=== PATIENT | male | born 1960 | race African-American/Black ===

== ENCOUNTER 2016-09-25 13:38 | Emergency (ER) | payer BC ==
[~2016-09-25 13:38] MED LIST: ASAB PO; BRILINTA90 MG PO; COREG12 PO; COREG6 PO; FLOVENT110 INH; HYGROTON 25 MG25 MG OR; KLOR-CON 1010 MEQ PO; LIPITOR40 PO; LISINOPRIL40 MG PO; MICARDIS HCT PO; MICARDIS80 PO; MICROZIDE PO; NAP500 PO; NEXIUM40 PO; NITROSTAT0.4 MG SL; NORV10 PO; NYS500UDL PO; PEPCID40 MG OR; PLAVIX PO; PRILO PO; PRILOSEC40 MG PO; PRIN10 PO; PROVHFA INH; REG PO; VENTOLIN HFA INH; Z100 PO; ZOCOR40 PO
[2016-09-25 16:29] LABS: BASOPHILS 0.3 %; BASOPHILS ABSOLUTE 0.03 10/3/uL (0.0-0.16); EOSINOPHILS 1.7 %; EOSINOPHILS ABSOLUTE 0.16 10/3/uL (0.0-0.53); ER CBC TAT 0 Hrs 03 Mins; HEMOGLOBIN 12.4 g/dL (13.6-17.8); IMMATURE GRANULOCYTES 0.4 %; IMMATURE GRANULOCYTES ABSOLUTE 0.04 10/3/uL (0.0-0.11); LYMPHOCYTES ABSOLUTE 3.17 10/3/uL (0.67-4.30); MEAN CORPUS HGB CONC 35.3 g/dL (32.0-36.0); MEAN CORPUSCULAR HEMOGLOB 31.4 pg (26.0-34.0); MEAN CORPUSCULAR VOLUME 88.9 fL (80-100); MEAN PLATELET VOLUME 10.8 fL (9.2-13.0); MONOCYTES 12.4 %; MONOCYTES ABSOLUTE 1.15 10/3/uL (0.21-1.20); NEUTROPHILS 51.2 %; NEUTROPHILS ABSOLUTE 4.76 10/3/uL (2.02-8.40); RBC DISTRIBUTION WIDTH 14.3 % (12.0-16.0); RED CELL COUNT 3.95 10/6/uL (4.7-6.1); WHITE BLOOD CELLS 9.3 10/3/uL (4.5-10.5)
[2016-09-25 16:30] LABS: HEMATOCRIT 35.1 % (40.0-51.0); MANUAL DIFF NO %; PLATELET COUNT 365 10/3/uL (150-400)
[2016-09-25 16:44] LABS: CHLORIDE, SERUM 106 MMOL/L (96-112); CO2 (CARBON DIOXIDE) 25 MMOL/L (24-34); SGOT(AST) 15 U/L (5-40); SGPT(ALT) 26 U/L (5-65); SODIUM, SERUM 139 MMOL/L (135-148); TOTAL BILIRUBIN 0.5 MG/DL (0-1.2); TOTAL PROTEIN 8.8 G/DL (6.0-8.5)
[2016-09-25 16:46] LABS: A/G RATIO 0.6 (0.7-1.9); ALBUMIN 3.2 G/DL (3.5-5.0); ALKALINE PHOSPHATASE 65 U/L (45-117); BUN (BLOOD UREA NITROGEN) 9 MG/DL (6-23); CREATININE 0.92 MG/DL (0.70-1.30); GFR AFRICAN AMERICAN 107 ML/MIN (>=60); GFR NON AFRICAN AMERICAN 93 ML/MIN (>=60); GLOBULIN 5.6 G/DL (2.5-4.1); GLUCOSE, SERUM 97 MG/DL (60-99)
[2017-03-01] MEDS ORDERED: PLAVIX PO (11:22)
== END 2016-09-25 17:30 | disposition home or self-care (01) ==
LOC: ER 13:38
PROVIDERS: Nurse Practitioner Acute Care
DX: J06.9 Acute upper respiratory infection, unspecified (principal); I10 Essential (primary) hypertension; J45.909 Unspecified asthma, uncomplicated; Z87.442 Personal history of urinary calculi; Z79.82 Long term (current) use of aspirin; Z79.899 Other long term (current) drug therapy
CPT/HCPCS: 71020; 80053; 85025; 99283